=== PATIENT | female | born 2000 ===

== ENCOUNTER 2025-08-18 14:39 | Emergency (ER) | payer OTHER ==
[2025-08-18 15:25] LABS: #Basophils 0.03 10x3/uL (0.0-0.2); #Eosinophils 0.05 10x3/uL (0.0-0.7); %Basophils 0.4 % (0.0-1.0); %Eosinophils 0.6 % (0.0-10.0); Mean Corpuscular Volume 80.1 fL (78.0-98.0)
[2025-08-18 15:31] LABS: BHCG - Serum Negative (NEGATIVE); Pregs Control Background? CLEAR/WHITE (CLR/WHITE); Pregs Control Bar Appear? YES (CONTROL BAR)
[2025-08-18 15:45] LABS: ALT (SGPT) 93 U/L (Less than 34); AST (SGOT) 86 U/L (11-34); Acetaminophen Less than 10 mcg/mL (Less than 10); Albumin 5.2 g/dL (3.1-4.5); Alkaline Phosphatase 69 U/L (40-110); Anion Gap 15 mmol/L (10-20); BUN (Urea Nitrogen) 10 mg/dL (7.0-18.7); Bilirubin, Total 0.5 mg/dL (0.3-1.2); CK (CPK) 102 U/L (29-168); Calc. Creatinine Clearance 0 mL/min (70-130); Calcium 10.2 mg/dL (7.8-10.44); Carbon Dioxide 23 mmol/L (22-29); Chloride 105 mmol/L (98-107); Globulin 3.0 g/dL (2.4-3.5); Glucose 108 mg/dL (70-105); Potassium 4.2 mmol/L (3.5-5.1); Salicylate Less than 8.0 mg/dL (Less than 8.0); Sodium 139 mmol/L (136-145)
[2025-08-18 15:56] LABS: #Monocytes 0.42 10x3/uL (0.11-0.59); #Neutrophils 6.34 10x3/uL (1.40-6.50); %Lymphocytes 19.0 % (21.0-51.0); %Monocytes 4.9 % (0.0-10.0); %Neutrophils 74.6 % (42.0-75.0); Hematocrit 45.4 % (36.0-47.0); Hemoglobin 14.1 g/dL (12.0-16.0); Mean Corpuscular Hemoglobin 24.9 pg (27.0-31.0); Platelet Count 407 10x3/uL (130-400); Red Blood Cell (RBC) Count 5.67 mill/uL (4.20-5.40); White Blood Cell (WBC) Count 8.49 10x3/uL (4.8-10.8)
[2025-08-18 17:41] LABS: CAUTI Indications for Culture Alt mental st,lethar; Glucose, Urine (Dipstick) Normal (Negative); Leukocyte 25 Leu/uL (Negative); Protein, Urine (Dipstick) 20 mg/dL (Neg-Trace); Specific Gravity, Urine 1.016 (1.002-1.036)
[2025-08-18 17:42] LABS: Bacteria/HPF 1+ HPF (None Seen)
[2025-08-18 17:43] LABS: Urine Culture Reflex No No
[2025-08-18 17:45] LABS: Cocaine Metabolite Screen Negative (Negative); THC/Cannabinoid Screen PRELIM POSITIVE (Negative); Tricyclic Screen Negative (Negative)
== END 2025-08-18 18:08 | disposition home or self-care (01) ==
LOC: ERS 14:39
DX: F43.20 Adjustment disorder, unspecified (principal); F17.210 Nicotine dependence, cigarettes, uncomplicated
CPT/HCPCS: 80053; 80306; 80307; 81001; 82550; 84703; 85025; 93005; 99285